=== PATIENT | male | born 2000 | race Two or more races ===

== ENCOUNTER 2024-08-12 00:04 | Emergency (ER) | payer SELFPAY ==
[~2024-08-12] VITALS: Ht 188 cm; Wt 97.0 kg
[2024-08-12 00:12] VITALS: O2SAT 99
[2024-08-12] MEDS ORDERED: AMOX-494 MT (00:47)
[2024-08-12 01:09] VITALS: TEMP 37.3; O2SAT 97
[2024-08-12 01:15] VITALS: BP 116/72; PULSE 87; RESP 18
[2024-08-12] MEDS: KETOROLAC 30MG/ML VIAL IM ONE (01:15)
== END 2024-08-12 01:31 | disposition home or self-care (01) ==
LOC: ER 00:04
DX: J03.00 Acute streptococcal tonsillitis, unspecified (principal)
CPT/HCPCS: 87430; 87070; 96372; 99283; J1885; Z7610